=== PATIENT | female | born 1965 | race Caucasian/White ===

== ENCOUNTER → 2016-08-19 | Outpatient (REF) | payer BC ==
[2016-08-19 15:43] LABS: BASO % 0.7 % (0.0-1.0); EOS # 0.5 K/mm3 (0.0-0.50); EOS % 6.7 % (0.0-3.0); LARGE UNSTAINED CELL # 0.1 K/mm3 (0.0-0.4); LYMPH % 28.8 % (24.0-44.0); MEAN CORPUSCULAR HEMOGLOBIN 29.7 pg (27.0-33.0); MEAN CORPUSCULAR HGB CONC 32.7 g/dl (32.0-36.5); MEAN CORPUSCULAR VOLUME 90.8 fl (80.0-96.0); MONO # 0.3 K/mm3 (0.0-0.8); MONO % 4.2 % (0.0-5.0); NEUTROPHILS % 58.7 % (36.0-66.0); PLATELET COUNT, AUTOMATED 234 k/mm3 (150-450); RED CELL DISTRIBUTION WIDTH 13.3 % (11.5-14.5); WHITE BLOOD COUNT 6.8 K/mm3 (4.0-10.0)
[2016-08-19 15:50] LABS: ALBUMIN 3.9 GM/DL (3.2-5.2); ALBUMIN/GLOBULIN RATIO 1.18 (1.00-1.93); ALKALINE PHOSPHATASE 88 U/L (45-117); ALT/SGPT 27 U/L (12-78); ANION GAP 7 MEQ/L (8-16); AST/SGOT 24 U/L (15-37); BILIRUBIN,TOTAL 0.5 MG/DL (0.2-1.0); BLOOD UREA NITROGEN 8 MG/DL (7-18); CALCIUM LEVEL 8.7 MG/DL (8.5-10.1); CARBON DIOXIDE LEVEL 27 MEQ/L (21-32); CHLORIDE LEVEL 109 MEQ/L (98-107); CHOLESTEROL LEVEL 177 MG/DL (<200); CREATININE FOR GFR 0.81 MG/DL (0.55-1.02); FREE T4 0.78 NG/DL (0.76-1.46); GLOMERULAR FILTRATION RATE > 60.0 (>51); GLUCOSE, FASTING 79 MG/DL (70-105); POTASSIUM SERUM 3.9 MEQ/L (3.5-5.1); SODIUM LEVEL 143 MEQ/L (136-145); TOTAL PROTEIN 7.2 GM/DL (6.4-8.2); TRIGLYCERIDES LEVEL 103 MG/DL (<150)
== END ==
LOC: M SFHCSACK 08:08
PROVIDERS: ATTEND Physician Assistant
DX: Z13.29 Encounter for screening for other suspected endocrine disorder (principal); Z13.21 Encounter for screening for nutritional disorder; I10 Essential (primary) hypertension; E78.5 Hyperlipidemia, unspecified

== ENCOUNTER → 2016-09-13 | Outpatient (CLI) | payer BC | LOC: M WUC 11:52 | PROVIDERS: ATTEND Physician Assistant | DX: M54.9 Dorsalgia, unspecified (principal) ==

== ENCOUNTER → 2017-11-21 | Outpatient (CLI) | payer BC ==
[2017-11-21 13:08] LABS: BASO % 0.6 % (0.0-1.0); EOS # 0.1 10^3/uL (0.0-0.50); EOS % 1.7 % (0.0-3.0); HEMOGLOBIN 13.6 g/dl (12.0-15.5); IMMATURE GRANULOCYTE % 0.3 % (0-3.0); LYMPH # 1.6 10^3/uL (1.5-4.5); LYMPH % 22.9 % (24.0-44.0); MEAN CORPUSCULAR HEMOGLOBIN 29.5 pg (27.0-33.0); MEAN CORPUSCULAR HGB CONC 32.4 g/dl (32.0-36.5); MEAN CORPUSCULAR VOLUME 91.1 fl (80.0-96.0); MONO # 0.4 10^3/uL (0.0-0.8); MONO % 5.3 % (0.0-5.0); NEUTROPHILS % 69.2 % (36.0-66.0); PLATELET COUNT, AUTOMATED 226 10^3/uL (150-450); RED BLOOD COUNT 4.61 10^6/uL (4.00-5.40); RED CELL DISTRIBUTION WIDTH 13.1 % (11.5-14.5); WHITE BLOOD COUNT 7.2 10^3/uL (4.0-10.0)
[2017-11-21 13:45] LABS: ALBUMIN 3.9 GM/DL (3.2-5.2); ALBUMIN/GLOBULIN RATIO 1.11 (1.00-1.93); ALKALINE PHOSPHATASE 93 U/L (45-117); ALT/SGPT 26 U/L (12-78); ANION GAP 10 MEQ/L (8-16); AST/SGOT 19 U/L (7-37); BILIRUBIN,TOTAL 0.6 MG/DL (0.2-1.0); BLOOD UREA NITROGEN 13 MG/DL (7-18); CALCIUM LEVEL 8.9 MG/DL (8.5-10.1); CARBON DIOXIDE LEVEL 27 MEQ/L (21-32); CHLORIDE LEVEL 105 MEQ/L (98-107); CREATININE FOR GFR 0.84 MG/DL (0.55-1.30); GLOMERULAR FILTRATION RATE > 60.0 (>51); GLUCOSE, FASTING 91 MG/DL (70-100); POTASSIUM SERUM 4.8 MEQ/L (3.5-5.1); SODIUM LEVEL 142 MEQ/L (136-145); TOTAL PROTEIN 7.4 GM/DL (6.4-8.2)
== END ==
LOC: M WUC 09:53
DX: R19.7 Diarrhea, unspecified (principal); J01.90 Acute sinusitis, unspecified
CPT/HCPCS: 80053

== ENCOUNTER 2020-09-11 09:37 | Emergency (ER) | payer BC, OTHER ==
[~2020-09-11] VITALS: Ht 170.2 cm; Wt 95.3 kg
[2020-09-11 10:22] LABS: BASO % 0.7 % (0.0-1.0); EOS # 0.2 10^3/uL (0.0-0.5); EOS % 3.3 % (0.0-3.0); HEMOGLOBIN 14.9 g/dl (12.0-15.5); LYMPH # 1.6 10^3/uL (1.5-5.0); MEAN CORPUSCULAR HEMOGLOBIN 29.4 pg (27.0-33.0); MEAN CORPUSCULAR HGB CONC 31.7 g/dl (32.0-36.5); MEAN CORPUSCULAR VOLUME 92.9 fl (80.0-96.0); MONO # 0.3 10^3/uL (0.0-0.8); MONO % 5.9 % (2.0-8.0); NEUTROPHILS # 3.6 10^3/uL (1.5-8.5); NEUTROPHILS % 62.9 % (36.0-66.0); PLATELET COUNT, AUTOMATED 214 10^3/uL (150-450); RED BLOOD COUNT 5.06 10^6/uL (4.00-5.40); WHITE BLOOD COUNT 5.8 10^3/uL (4.0-10.0)
--- NOTE | 2020-09-11 10:34 | REP ---
INDICATION: CHEST PAIN. COMPARISON: 08/07/2015 the latest prior TECHNIQUE: Portable FINDINGS: The technique utilized in obtaining the radiograph has magnified the cardiac silhouette and accentuated the interstitial markings. The superior mediastinal structures are midline. The cardiac silhouette is unremarkable in size, shape, and position. The diaphragmatic surfaces of the lungs are regular, and the costophrenic angles are clear. The pulmonary jo are clear. The imaged osseous structures are intact. IMPRESSION: There is no acute cardiopulmonary disease. No significant change compared to the prior exam. <Electronically signed by Noel Alanis > 09/11/20 [id number]
[2020-09-11] MEDS ORDERED: ISOVUE-370 76% 100ML VIAL As Ordered ONE (10:44)
[2020-09-11 11:08] LABS: ALT/SGPT 35 U/L (12-78); BILIRUBIN,DIRECT 0.1 MG/DL (0.0-0.2); BILIRUBIN,TOTAL 0.7 MG/DL (0.2-1.0); BLOOD UREA NITROGEN 12 MG/DL (7-18); CALCIUM LEVEL 9.5 MG/DL (8.5-10.1); CARBON DIOXIDE LEVEL 29 MEQ/L (21-32); CHLORIDE LEVEL 105 MEQ/L (98-107); CREATININE FOR GFR 0.82 MG/DL (0.55-1.30); FREE T4 0.98 NG/DL (0.76-1.46); GLOMERULAR FILTRATION RATE > 60.0 (>51); GLUCOSE, FASTING 104 MG/DL (70-100); LIPASE 123 U/L (73-393); NT-PRO BNP 114 PG/ML (<125); POTASSIUM SERUM 4.4 MEQ/L (3.5-5.1); SODIUM LEVEL 140 MEQ/L (136-145); TOTAL PROTEIN 7.6 GM/DL (6.4-8.2)
--- NOTE | 2020-09-11 11:21 | REP ---
INDICATION: chest pain, into back intermittent, ro dissection COMPARISON: CT angio chest 08/07/2015 for pulmonary arteries. TECHNIQUE: CT angiography of the chest attention aorta after the intravenous administration of 75 cc Isovue 370. MIP reformatted 3D imaging of the thoracic aorta was also obtained FINDINGS: Although the examinations are technically different there is no evidence of significant change in the appearance of the thoracic aorta when compared to the prior exam. The maximal AP dimension of the ascending aorta is 3.9 cm. There is no evidence of aneurysmal dilatation or dissection. The mediastinum and pulmonary milli are unchanged. There is no evidence of a mass or adenopathy. There are no pleural or pericardial effusions. There is no significant change in appearance of the imaged upper abdomen or imaged osseous structures. Since the exam was ordered and protocoled for evaluation and opacification of the thoracic aorta, evaluation of the pulmonary arteries cannot be made due to poor pulmonary arterial contrast opacification throughout the exam. IMPRESSION: CT findings are within normal limits as described above. <Electronically signed by Noel Alanis > 09/11/20 [id number]
[2020-09-11] MEDS ORDERED: CLOPIDOGREL 75 MG TAB PO STA (11:45)
[2020-09-11] MEDS ORDERED: ASPIRIN 81 MG CHEW TABLET PO ONE (11:45)
[2020-09-11] MEDS ORDERED: HEPARIN SOD (PORCINE) 5000UNITS/ML 1ML VIAL/SYRINGE IV ONE (11:45)
[2020-09-11] MEDS ORDERED: CLOPIDOGREL 300 MG TAB (PLAVIX) PO ONE (11:45)
[2020-09-11] MEDS ORDERED: HEPARIN DRIP 25,000 UNITS in IV 1 EA IV SCH ×5 (11:45→14:20)
[2020-09-11] MEDS ORDERED: MORPHINE 2 MG/ML 1ML VIAL (J2270) IV ONE (11:55)
[2020-09-11 13:14] LABS: RSV AMPLIFICATION NEGATIVE (NEGATIVE)
[2020-09-11 13:52] LABS: INR 1.02; PROTHROMBIN TIME 13.6 SECONDS (12.5-14.3)
[2020-09-11 14:13] LABS: PARTIAL THROMBOPLASTIN TIME 181.7 SECONDS (24.2-38.5)
[2020-09-11] MEDS ORDERED: HEPARIN SOD (PORCINE) 5000UNITS/ML 1ML VIAL/SYRINGE IV PRN (14:20)
[2020-09-11 15:16] VITALS: BP 143/84
--- NOTE | 2020-09-11 20:37 | ECGEPIP ---
[facility] - ED Test Date: 2020-09-11 Pat Name: BECCA DELONG Department: Room: - Gender: Female Deliver Driver: : 1965 Requested By: Cara Sam Order Number: [id number] Reading MD: Cara Sam Measurements Intervals [place] Rate: 53 P: 33 NE: 160 QRS: 5 QRSD: 74 T: 126 QT: 464 QTc: 435 Interpretive Statements Sinus bradycardia Anteroseptal infarct , age undetermined T wave abnormality, consider ischemia similar 08/07/15 Electronically Signed on 09-11-2020 20:37:16 EDT by Cara Sam
== END 2020-09-11 15:10 | disposition short-term general hospital (02) ==
LOC: M ED 09:37
DX: I24.9 Acute ischemic heart disease, unspecified (principal); R94.31 Abnormal electrocardiogram [ECG] [EKG]; M54.6 Pain in thoracic spine; I25.10 Atherosclerotic heart disease of native coronary artery without angina pectoris; I25.2 Old myocardial infarction; K21.9 Gastro-esophageal reflux disease without esophagitis; I10 Essential (primary) hypertension; E78.5 Hyperlipidemia, unspecified; Z88.0 Allergy status to penicillin
CPT/HCPCS: 71045; 71275; 80047; 80048; 80076; 83690; 83880; 84439; 84443; 85025; 85610; 85730; 87631; 93005; 93041; 94760; 96365; 96366; 99285; J1644; Q9967

== ENCOUNTER → 2022-02-06 | Outpatient (CLI) | payer OTHER ==
[2022-02-06 13:47] LABS: BASO # 0.1 10^3/uL (0.0-0.2); BASO % 0.6 % (0.0-1.0); EOS # 0.1 10^3/uL (0.0-0.5); EOS % 1.6 % (0.0-3.0); HEMOGLOBIN 13.9 g/dl (12.0-15.5); LYMPH # 1.9 10^3/uL (1.5-5.0); LYMPH % 23.8 % (24.0-44.0); MEAN CORPUSCULAR HEMOGLOBIN 29.4 pg (27.0-33.0); MEAN CORPUSCULAR HGB CONC 31.6 g/dl (32.0-36.5); MEAN CORPUSCULAR VOLUME 93.2 fl (80.0-96.0); MONO # 0.5 10^3/uL (0.0-0.8); MONO % 5.8 % (2.0-8.0); NEUTROPHILS # 5.5 10^3/uL (1.5-8.5); NEUTROPHILS % 67.7 % (36.0-66.0); PLATELET COUNT, AUTOMATED 273 10^3/uL (150-450); RED BLOOD COUNT 4.72 10^6/uL (4.00-5.40); WHITE BLOOD COUNT 8.1 10^3/uL (4.0-10.0)
[2022-02-06 14:15] LABS: ALBUMIN 4.2 G/DL (3.2-5.2); ALKALINE PHOSPHATASE 101 U/L (46-116); ALT/SGPT 43 U/L (7.0-40); AST/SGOT 38 U/L (<34); BILIRUBIN,TOTAL 0.6 MG/DL (0.3-1.2); BLOOD UREA NITROGEN 15 MG/DL (9-23); CALCIUM LEVEL 9.6 MG/DL (8.5-10.1); CARBON DIOXIDE LEVEL 27 MMOL/L (20-31); CHLORIDE LEVEL 106 MMOL/L (98-107); CHOLESTEROL LEVEL 160 MG/DL (<200); CHOLESTEROL RISK RATIO 2.11 (<5); CREATININE FOR GFR 0.86 MG/DL (0.55-1.30); GLOMERULAR FILTRATION RATE > 60.0 (>51); GLUCOSE, FASTING 99 MG/DL (60-100); HDL CHOLESTEROL 75.6 MG/DL (>40); LDL CHOLESTEROL 52.8 MG/DL (<100); NON-HDL-C 84 MG/DL; POTASSIUM SERUM 4.4 MMOL/L (3.5-5.1); SODIUM LEVEL 141 MMOL/L (136-145); TRIGLYCERIDES LEVEL 158 MG/DL (<150)
[2022-02-06 14:17] LABS: THYROID STIMULATING HORMONE 1.602 uIU/ML (0.55-4.78)
== END ==
LOC: M PLALAB 09:18
PROVIDERS: ATTEND Physician Assistant
DX: I25.10 Atherosclerotic heart disease of native coronary artery without angina pectoris (principal)

== ENCOUNTER → 2022-02-27 | Outpatient (CLI) | payer OTHER | LOC: M WHC 09:34 | PROVIDERS: ATTEND Physician Assistant | DX: R92.8 Other abnormal and inconclusive findings on diagnostic imaging of breast (principal); N63.21 Unspecified lump in the left breast, upper outer quadrant ==

== ENCOUNTER → 2022-03-13 | Outpatient (CLI) | payer OTHER ==
[~2022-03-13] MED LIST: ATOR1TAB19 PO; LISI5TAB11 PO
[2022-03-13 07:45] VITALS: BP 132/84
== END ==
LOC: M WHCPRO 07:32
PROVIDERS: ATTEND Surgery
DX: R92.8 Other abnormal and inconclusive findings on diagnostic imaging of breast (principal); R59.9 Enlarged lymph nodes, unspecified; N63.21 Unspecified lump in the left breast, upper outer quadrant; N63.32 Unspecified lump in axillary tail of the left breast

== ENCOUNTER → 2022-03-20 | Outpatient (CLI) | payer OTHER ==
[~2022-03-20] MED LIST changes: +ASPI81CH33 PO; +CLOT1CRE56 TOP
[2022-03-20 15:03] LABS: BLOOD UREA NITROGEN 14 MG/DL (9-23); CALCIUM LEVEL 9.1 MG/DL (8.5-10.1); CARBON DIOXIDE LEVEL 27 MMOL/L (20-31); CHLORIDE LEVEL 106 MMOL/L (98-107); GLOMERULAR FILTRATION RATE > 60.0 (>51); GLUCOSE, FASTING 91 MG/DL (60-100); POTASSIUM SERUM 4.3 MMOL/L (3.5-5.1); SODIUM LEVEL 141 MMOL/L (136-145)
== END ==
LOC: M PLALAB 09:58
PROVIDERS: ATTEND Surgery
DX: C50.912 Malignant neoplasm of unspecified site of left female breast (principal)

== ENCOUNTER → 2022-03-21 | Outpatient (CLI) | payer OTHER ==
[~2022-03-21] MED LIST changes: +PROHANCE 279.3MG/ML 15ML VIAL As Ordered ONE; +PROHANCE 279.3MG/ML 5ML VIAL As Ordered ONE
== END ==
LOC: M RAD 15:27
PROVIDERS: ATTEND Surgery
DX: C50.912 Malignant neoplasm of unspecified site of left female breast (principal)

== ENCOUNTER → 2022-03-28 | Outpatient (CLI) | payer OTHER ==
[~2022-03-28] MED LIST changes: +DEXA4TA PO; -PROHANCE 279.3MG/ML 15ML VIAL As Ordered ONE; -PROHANCE 279.3MG/ML 5ML VIAL As Ordered ONE
== END ==
LOC: M CARPUL 13:09
PROVIDERS: ATTEND Internal Medicine Medical Oncology
DX: I42.7 Cardiomyopathy due to drug and external agent (principal); C50.919 Malignant neoplasm of unspecified site of unspecified female breast

== ENCOUNTER → 2022-04-05 | Outpatient (CLI) | payer OTHER ==
[~2022-04-05] MED LIST changes: +ACET-897 PO; +CETI10CH PO; +LIDOCAINE 1% MDV 20ML VIAL As Ordered ONE; +MIDAZOLAM INJ 2MG/2ML VIAL As Ordered ONE; +MULT-40 PO; +NS 1,000 ML IV SCH; +VANCOMYCIN 1000MG/20ML VIAL As Ordered ONE; +VANCOMYCIN HCL 1,000 MG, VIAL MATE ADAPTER 1 EACH in NS 250 ML IV ONE; +diphenhydrAMINE 50MG/ML VIAL As Ordered ONE; +fentaNYL 100 MCG/2 ML INJECTION As Ordered ONE
[2022-04-05 10:30] VITALS: BP 155/67
== END ==
LOC: M IRPRO 06:37
PROVIDERS: ATTEND Internal Medicine Medical Oncology
DX: C50.912 Malignant neoplasm of unspecified site of left female breast (principal); Z79.82 Long term (current) use of aspirin; Z79.899 Other long term (current) drug therapy; Z88.0 Allergy status to penicillin
CPT/HCPCS: 36561; 87635; 99152; 99153; C1769; C1788; C1894; J1642; J1644; J2250; J3010; J3370

== ENCOUNTER → 2022-04-22 | Outpatient (CLI) | payer OTHER ==
[~2022-04-22] MED LIST changes: +ATOR80TA59 PO; +HOME MED LIST COMPLETE! XX SCH; -MIDAZOLAM INJ 2MG/2ML VIAL As Ordered ONE; -NS 1,000 ML IV SCH; -VANCOMYCIN 1000MG/20ML VIAL As Ordered ONE; -VANCOMYCIN HCL 1,000 MG, VIAL MATE ADAPTER 1 EACH in NS 250 ML IV ONE; -diphenhydrAMINE 50MG/ML VIAL As Ordered ONE; -fentaNYL 100 MCG/2 ML INJECTION As Ordered ONE
[2022-04-22 11:45] VITALS: BP 148/73
== END ==
LOC: M IRPRO 07:56
PROVIDERS: ATTEND Internal Medicine Medical Oncology
DX: C78.01 Secondary malignant neoplasm of right lung (principal); C50.912 Malignant neoplasm of unspecified site of left female breast; R91.1 Solitary pulmonary nodule; J95.811 Postprocedural pneumothorax

== ENCOUNTER → 2022-04-23 | Outpatient (POV) | payer OTHER ==
[~2022-04-23] VITALS: Ht 170.2 cm; Wt 95.4 kg
[~2022-04-23] MED LIST changes: -HOME MED LIST COMPLETE! XX SCH; -LIDOCAINE 1% MDV 20ML VIAL As Ordered ONE
[2022-04-23 14:00] VITALS: BP 140/80
== END ==
LOC: M IRPOV 13:21
PROVIDERS: ATTEND Radiology Diagnostic Radiology
DX: Z45.2 Encounter for adjustment and management of vascular access device (principal); Z88.0 Allergy status to penicillin

== ENCOUNTER → 2022-05-06 | Outpatient (CLI) | payer OTHER ==
[~2022-05-06] MED LIST changes: +CALC1TAB42 PO; +GABA-282; +KISQ200T PO; +LETR2.5T2 PO
[2022-05-06 10:27] LABS: BASO % 0.6 % (0.0-1.0); EOS # 0.1 10^3/uL (0.0-0.5); HEMATOCRIT 42.1 % (36.0-47.0); HEMOGLOBIN 13.6 g/dl (12.0-15.5); LYMPH # 1.7 10^3/uL (1.5-5.0); LYMPH % 24.2 % (24.0-44.0); MEAN CORPUSCULAR HEMOGLOBIN 30.1 pg (27.0-33.0); MEAN CORPUSCULAR HGB CONC 32.3 g/dl (32.0-36.5); MEAN CORPUSCULAR VOLUME 93.1 fl (80.0-96.0); MONO # 0.4 10^3/uL (0.0-0.8); MONO % 6.4 % (2.0-8.0); NEUTROPHILS # 4.6 10^3/uL (1.5-8.5); NEUTROPHILS % 66.4 % (36.0-66.0); PLATELET COUNT, AUTOMATED 254 10^3/uL (150-450); RED BLOOD COUNT 4.52 10^6/uL (4.00-5.40); WHITE BLOOD COUNT 6.9 10^3/uL (4.0-10.0)
[2022-05-06 10:59] LABS: ALBUMIN 3.8 G/DL (3.2-5.2); ALKALINE PHOSPHATASE 107 U/L (46-116); ALT/SGPT 21 U/L (7.0-40); AST/SGOT 20 U/L (<34); BILIRUBIN,TOTAL 0.7 MG/DL (0.3-1.2); BLOOD UREA NITROGEN 17 MG/DL (9-23); CALCIUM LEVEL 8.6 MG/DL (8.5-10.1); CARBON DIOXIDE LEVEL 28 MMOL/L (20-31); CHLORIDE LEVEL 105 MMOL/L (98-107); CREATININE FOR GFR 0.85 MG/DL (0.55-1.30); GLOMERULAR FILTRATION RATE > 60.0 (>51); GLUCOSE, FASTING 95 MG/DL (60-100); POTASSIUM SERUM 4.1 MMOL/L (3.5-5.1); SODIUM LEVEL 139 MMOL/L (136-145); TOTAL PROTEIN 6.7 G/DL (5.7-8.2)
== END ==
LOC: M EKG 09:35
PROVIDERS: ATTEND Internal Medicine Medical Oncology
DX: C50.912 Malignant neoplasm of unspecified site of left female breast (principal)

== ENCOUNTER → 2022-06-20 | Outpatient (CLI) | payer OTHER ==
[~2022-06-20] MED LIST changes: +RIBO1TAB2 PO
[2022-06-20 10:16] LABS: BASO % 1.1 % (0.0-1.0); EOS % 0.7 % (0.0-3.0); HEMOGLOBIN 12.7 g/dl (12.0-15.5); LYMPH # 1.1 10^3/uL (1.5-5.0); LYMPH % 41.2 % (24.0-44.0); MEAN CORPUSCULAR HEMOGLOBIN 30.5 pg (27.0-33.0); MEAN CORPUSCULAR HGB CONC 32.6 g/dl (32.0-36.5); MEAN CORPUSCULAR VOLUME 93.8 fl (80.0-96.0); MONO # 0.2 10^3/uL (0.0-0.8); MONO % 5.5 % (2.0-8.0); NEUTROPHILS # 1.4 10^3/uL (1.5-8.5); NEUTROPHILS % 51.1 % (36.0-66.0); PLATELET COUNT, AUTOMATED 220 10^3/uL (150-450); RED BLOOD COUNT 4.16 10^6/uL (4.00-5.40); WHITE BLOOD COUNT 2.7 10^3/uL (4.0-10.0)
== END ==
LOC: M LAB 09:12
PROVIDERS: ATTEND Internal Medicine Medical Oncology
DX: C50.912 Malignant neoplasm of unspecified site of left female breast (principal)

== ENCOUNTER → 2022-07-17 | Outpatient (CLI) | payer OTHER | LOC: M WHC 08:44 | PROVIDERS: ATTEND Internal Medicine Medical Oncology | DX: Z13.820 Encounter for screening for osteoporosis (principal); C50.912 Malignant neoplasm of unspecified site of left female breast; M85.852 Other specified disorders of bone density and structure, left thigh; M81.0 Age-related osteoporosis without current pathological fracture ==

== ENCOUNTER → 2022-07-29 | Outpatient (CLI) | payer OTHER ==
[~2022-07-29] MED LIST changes: +ALEN70TA82 PO; +GASTROGRAFIN SOLUTION 30ML As Ordered ONE; +ISOVUE-370 76% 100ML VIAL As Ordered ONE
== END ==
LOC: M RAD 08:23
PROVIDERS: ATTEND Internal Medicine Medical Oncology
DX: C50.919 Malignant neoplasm of unspecified site of unspecified female breast (principal); N63.25 Unspecified lump in the left breast, overlapping quadrants
CPT/HCPCS: 71260; 74177; Q9963; Q9967

== ENCOUNTER → 2022-10-25 | Outpatient (CLI) | payer OTHER ==
[~2022-10-25] MED LIST changes: +CLEO300C2 PO
== END ==
LOC: M RAD 08:36
PROVIDERS: ATTEND Internal Medicine Medical Oncology
DX: C50.919 Malignant neoplasm of unspecified site of unspecified female breast (principal); K44.9 Diaphragmatic hernia without obstruction or gangrene; K57.90 Diverticulosis of intestine, part unspecified, without perforation or abscess without bleeding
CPT/HCPCS: 71260; 74177; Q9963; Q9967

== ENCOUNTER → 2022-11-05 | Outpatient (CLI) | payer OTHER ==
[~2022-11-05] VITALS: Ht 170.2 cm; Wt 93.2 kg
[~2022-11-05] MED LIST changes: -GASTROGRAFIN SOLUTION 30ML As Ordered ONE; -ISOVUE-370 76% 100ML VIAL As Ordered ONE; +LIDOCAINE 1% MDV 20ML VIAL As Ordered ONE; +LIDOCAINE W/EPINEPHRINE 1% 20ML VIAL As Ordered ONE; +MIDAZOLAM INJ 2MG/2ML VIAL As Ordered ONE; +ceFAZolin 2 GM/D5W 50 ML IV BAG As Ordered ONE; +ceFAZolin SOD 2 GM in IV 1 EA IV ONE; +fentaNYL 100 MCG/2 ML INJECTION As Ordered ONE
[2022-11-05 07:10] VITALS: TEMP 98.9
[2022-11-05 08:01] LABS: INR 0.99; PROTHROMBIN TIME 12.8 SECONDS (12.5-14.5)
[2022-11-05 08:02] LABS: PARTIAL THROMBOPLASTIN TIME 24.6 SECONDS (24.8-34.2)
[2022-11-05 10:40] VITALS: BP 159/77; O2SAT 100
== END ==
LOC: M IRPRO 06:51
PROVIDERS: ATTEND Internal Medicine Medical Oncology
DX: C50.912 Malignant neoplasm of unspecified site of left female breast (principal)
CPT/HCPCS: 36589; 85610; 85730; J0690; J2250; J3010

== ENCOUNTER → 2023-03-10 | Outpatient (CLI) | payer OTHER ==
[~2023-03-10] MED LIST changes: -GABA-282; +GABA-282 PO; +GASTROGRAFIN SOLUTION 30ML As Ordered ONE; +ISOVUE-370 76% 100ML VIAL As Ordered ONE; -LIDOCAINE 1% MDV 20ML VIAL As Ordered ONE; -LIDOCAINE W/EPINEPHRINE 1% 20ML VIAL As Ordered ONE; -MIDAZOLAM INJ 2MG/2ML VIAL As Ordered ONE; -ceFAZolin 2 GM/D5W 50 ML IV BAG As Ordered ONE; -ceFAZolin SOD 2 GM in IV 1 EA IV ONE; -fentaNYL 100 MCG/2 ML INJECTION As Ordered ONE
== END ==
LOC: M RAD 09:00
PROVIDERS: ATTEND Internal Medicine Medical Oncology
DX: C50.912 Malignant neoplasm of unspecified site of left female breast (principal); R91.1 Solitary pulmonary nodule; K44.9 Diaphragmatic hernia without obstruction or gangrene; K57.30 Diverticulosis of large intestine without perforation or abscess without bleeding
CPT/HCPCS: 71260; 74177; Q9963; Q9967

== ENCOUNTER 2023-03-29 08:37 | Emergency (ER) | payer OTHER ==
[~2023-03-29] VITALS: Ht 170.2 cm; Wt 92.9 kg
[~2023-03-29 08:37] MED LIST changes: -GASTROGRAFIN SOLUTION 30ML As Ordered ONE; -ISOVUE-370 76% 100ML VIAL As Ordered ONE
[2023-03-29 08:53] VITALS: TEMP 97.8
[2023-03-29 09:30] LABS: BASO % 1.5 % (0.0-1.0); EOS % 0.7 % (0.0-3.0); HEMATOCRIT 37.4 % (36.0-47.0); HEMOGLOBIN 13.4 g/dl (12.0-15.5); LYMPH # 0.9 10^3/uL (1.5-5.0); LYMPH % 32.1 % (24.0-44.0); MEAN CORPUSCULAR HEMOGLOBIN 39.1 pg (27.0-33.0); MEAN CORPUSCULAR HGB CONC 35.8 g/dl (32.0-36.5); MONO # 0.1 10^3/uL (0.0-0.8); MONO % 3.6 % (2.0-8.0); NEUTROPHILS # 1.7 10^3/uL (1.5-8.5); NEUTROPHILS % 61.7 % (36.0-66.0); PLATELET COUNT, AUTOMATED 194 10^3/uL (150-450); RED BLOOD COUNT 3.43 10^6/uL (4.00-5.40); WHITE BLOOD COUNT 2.7 10^3/uL (4.0-10.0)
[2023-03-29 09:40] LABS: INR 0.96; PROTHROMBIN TIME 12.5 SECONDS (12.5-14.5)
[2023-03-29 09:41] LABS: PARTIAL THROMBOPLASTIN TIME 24.8 SECONDS (24.8-34.2)
[2023-03-29 09:46] VITALS: BP 121/69
[2023-03-29 09:52] LABS: CK-MB VALUE MASS < 1.0 NG/ML (<3.6)
[2023-03-29 09:53] LABS: LIPASE 32 U/L (12-53)
[2023-03-29 09:55] LABS: ALBUMIN 3.6 G/DL (3.2-5.2); ALKALINE PHOSPHATASE 82 U/L (46-116); ALT/SGPT 20 U/L (7.0-40); AST/SGOT 17 U/L (<34); BILIRUBIN,DIRECT 0.3 MG/DL (<0.4); BILIRUBIN,TOTAL 0.8 MG/DL (0.3-1.2); BLOOD UREA NITROGEN 13 MG/DL (9-23); CALCIUM LEVEL 8.5 MG/DL (8.5-10.1); CARBON DIOXIDE LEVEL 26 MMOL/L (20-31); CHLORIDE LEVEL 111 MMOL/L (98-107); CPK CREATINE PHOSPHOKINASE 94 U/L (34-145); CREATININE FOR GFR 1.04 MG/DL (0.55-1.30); GLOMERULAR FILTRATION RATE 57.7 (>51); GLUCOSE, FASTING 110 MG/DL (60-100); MB/CK RELATIVE INDEX 1.06 (< OR =4); POTASSIUM SERUM 4.3 MMOL/L (3.5-5.1); SODIUM LEVEL 142 MMOL/L (136-145); TOTAL PROTEIN 6.3 G/DL (5.7-8.2)
[2023-03-29 09:56] LABS: THYROID STIMULATING HORMONE 1.134 uIU/ML (0.55-4.78)
[2023-03-29 09:57] LABS: FREE T4 1.15 NG/DL (0.89-1.76)
[2023-03-29 10:43] LABS: CK-MB VALUE MASS < 1.0 NG/ML (<3.6)
[2023-03-29 10:44] LABS: CPK CREATINE PHOSPHOKINASE 94 U/L (34-145); MB/CK RELATIVE INDEX 1.06 (< OR =4)
[2023-03-29] MEDS ORDERED: ISOVUE-370 76% 100ML VIAL As Ordered ONE (10:51)
[2023-03-29 11:16] VITALS: O2SAT 99
== END 2023-03-29 12:25 | disposition home or self-care (01) ==
LOC: M ED 08:37
DX: R07.9 Chest pain, unspecified (principal); M54.50 Low back pain, unspecified; R00.1 Bradycardia, unspecified; I45.81 Long QT syndrome; I10 Essential (primary) hypertension; E78.5 Hyperlipidemia, unspecified; C50.919 Malignant neoplasm of unspecified site of unspecified female breast; Z86.79 Personal history of other diseases of the circulatory system; Z79.82 Long term (current) use of aspirin; Z79.811 Long term (current) use of aromatase inhibitors; Z79.899 Other long term (current) drug therapy
CPT/HCPCS: 36415; 71045; 71275; 80048; 80076; 82550; 82553; 83690; 84439; 84443; 85025; 85610; 85730; 87486; 87581; 87633; 87798; 93005; 93041; 94760; 99285; Q9967

== ENCOUNTER → 2023-04-28 | Outpatient (CLI) | payer OTHER | LOC: M RAD 09:56 | PROVIDERS: ATTEND Internal Medicine Medical Oncology | DX: C50.912 Malignant neoplasm of unspecified site of left female breast (principal) | CPT/HCPCS: 78306; A9503 ==

== ENCOUNTER → 2023-07-10 | Outpatient (REF) | payer OTHER ==
[~2023-07-10] MED LIST changes: +LEVO1TAB39 PO
[2023-07-10 12:15] LABS: CHOLESTEROL RISK RATIO 1.7 (<5); HDL CHOLESTEROL 85.5 MG/DL (>40); LDL CHOLESTEROL 43.9 MG/DL (<100); NON-HDL-C 60.5 MG/DL
[2023-07-10 12:18] LABS: FREE T4 1.04 NG/DL (0.89-1.76); THYROID STIMULATING HORMONE 1.252 uIU/ML (0.55-4.78)
== END ==
LOC: M SFHCPLAZ 11:12
PROVIDERS: ATTEND Physician Assistant
DX: Z13.1 Encounter for screening for diabetes mellitus (principal); Z13.29 Encounter for screening for other suspected endocrine disorder; E78.5 Hyperlipidemia, unspecified

== ENCOUNTER 2023-07-19 09:51 | Inpatient (IN) | payer OTHER ==
[~2023-07-19] VITALS: Ht 170.2 cm; Wt 91.7 kg
[~2023-07-19 09:51] MED LIST changes: +LETROZOLE 2.5 MG TAB PO SCH
[2023-07-19] MEDS: MORPHINE 4 MG/ML 1ML VIAL IV PRN (10:56)
[2023-07-19 11:00] LABS: BASO % 0.5 % (0.0-1.0); EOS % 0.3 % (0.0-3.0); HEMATOCRIT 37.4 % (36.0-47.0); HEMOGLOBIN 13.2 g/dl (12.0-15.5); LYMPH # 0.9 10^3/uL (1.5-5.0); LYMPH % 24.7 % (24.0-44.0); MEAN CORPUSCULAR HEMOGLOBIN 39.2 pg (27.0-33.0); MEAN CORPUSCULAR HGB CONC 35.3 g/dl (32.0-36.5); MONO # 0.3 10^3/uL (0.0-0.8); NEUTROPHILS # 2.5 10^3/uL (1.5-8.5); PLATELET COUNT, AUTOMATED 250 10^3/uL (150-450); RED BLOOD COUNT 3.37 10^6/uL (4.00-5.40); WHITE BLOOD COUNT 3.7 10^3/uL (4.0-10.0)
[2023-07-19 11:05] LABS: ERYTHROCYTE SEDIMENTATION RATE 66 mm/hr (0-30)
[2023-07-19 11:14] LABS: INR 1.03; PARTIAL THROMBOPLASTIN TIME 27.2 SECONDS (24.8-34.2); PROTHROMBIN TIME 13.1 SECONDS (12.5-14.5)
[2023-07-19 11:34] LABS: ALBUMIN 3.2 G/DL (3.2-5.2); ALKALINE PHOSPHATASE 148 U/L (46-116); ALT/SGPT 28 U/L (7.0-40); AST/SGOT 30 U/L (<34); BILIRUBIN,DIRECT 0.2 MG/DL (<0.4); BILIRUBIN,TOTAL 0.6 MG/DL (0.3-1.2); BLOOD UREA NITROGEN 13 MG/DL (9-23); CALCIUM LEVEL 9.2 MG/DL (8.5-10.1); CARBON DIOXIDE LEVEL 28 MMOL/L (20-31); CHLORIDE LEVEL 106 MMOL/L (98-107); CREATININE FOR GFR 0.88 MG/DL (0.55-1.30); GLOMERULAR FILTRATION RATE > 60.0 (>51); GLUCOSE, FASTING 106 MG/DL (60-100); POTASSIUM SERUM 4.4 MMOL/L (3.5-5.1); SODIUM LEVEL 140 MMOL/L (136-145); TOTAL PROTEIN 6.6 G/DL (5.7-8.2)
[2023-07-19] MEDS ORDERED: ISOVUE-370 76% 100ML VIAL As Ordered ONE (11:40)
[2023-07-19 11:45] LABS: PROCALCITONIN 0.04 ng/ml
[2023-07-19] MEDS: cefTRIAXone SOD 2 GM in D5W MINI-BAG PLUS 50 ML IV ONE (13:03)
[2023-07-19] MEDS ORDERED: LETR2.5T2 PO (13:28)
[2023-07-19] MEDS ORDERED: RIBO1TAB2 PO (13:28)
[2023-07-19] MEDS ORDERED: ASPI81TA26 PO (13:28)
[2023-07-19] MEDS ORDERED: CETI-24 PO (13:28)
[2023-07-19] MEDS ORDERED: LEVO1TAB39 PO (13:28)
[2023-07-19] MEDS ORDERED: HOME MED LIST COMPLETE! XX SCH (13:30)
[2023-07-19] MEDS: dexAMETHasone 20MG/5ML VIAL IV ONE (14:02)
[2023-07-19] MEDS ORDERED: GABAPENTIN 300 MG CAP PO PRN (14:05)
[2023-07-19] MEDS: metroNIDAZOLE 500 MG in IV 1 EA IV ONE (14:06)
[2023-07-19] MEDS: NS 1,000 ML IV SCH (15:29)
[2023-07-19] MEDS: ACETAMINOPHEN TAB 650MG DOSE (2X325MG) PO PRN (15:30)
[2023-07-19 16:15] VITALS: BP 138/83; TEMP 97.5; O2SAT 97
[2023-07-19] MEDS: CLINDAMYCIN 900 MG in IV 1 EA IV SCH (18:15)
[2023-07-19] MEDS: LETROZOLE 2.5 MG TAB PO SCH (18:15)
[2023-07-19] MEDS: ATORVASTATIN 20 MG TAB PO SCH (19:39)
[2023-07-19] MEDS: lisinopriL 5 MG TAB PO SCH (19:40)
[2023-07-19 20:00] VITALS: BP 133/82; TEMP 97.5; O2SAT 96
[2023-07-19 20:48] VITALS: O2SAT 96
[2023-07-19] MEDS: dexAMETHasone 20MG/5ML VIAL IV SCH (21:00)
[2023-07-20] VITALS (16 sets, daily range): BP systolic 101–155; BP diastolic 58–83; TEMP 97.2–98.2; O2SAT 94–98
[2023-07-20 06:40] LABS: HEMATOCRIT 33.5 % (36.0-47.0); HEMOGLOBIN 11.8 g/dl (12.0-15.5); MEAN CORPUSCULAR HEMOGLOBIN 38.7 pg (27.0-33.0); MEAN CORPUSCULAR HGB CONC 35.2 g/dl (32.0-36.5); MEAN CORPUSCULAR VOLUME 109.8 fl (80.0-96.0); PLATELET COUNT, AUTOMATED 252 10^3/uL (150-450); RED BLOOD COUNT 3.05 10^6/uL (4.00-5.40); WHITE BLOOD COUNT 3.5 10^3/uL (4.0-10.0)
[2023-07-20 07:02] LABS: ALBUMIN 2.7 G/DL (3.2-5.2); ALKALINE PHOSPHATASE 129 U/L (46-116); ALT/SGPT 20 U/L (7.0-40); AST/SGOT 20 U/L (<34); BILIRUBIN,TOTAL 0.4 MG/DL (0.3-1.2); BLOOD UREA NITROGEN 10 MG/DL (9-23); CALCIUM LEVEL 8.8 MG/DL (8.5-10.1); CARBON DIOXIDE LEVEL 24 MMOL/L (20-31); CHLORIDE LEVEL 110 MMOL/L (98-107); CREATININE FOR GFR 0.71 MG/DL (0.55-1.30); GLOMERULAR FILTRATION RATE > 60.0 (>51); GLUCOSE, FASTING 150 MG/DL (60-100); MAGNESIUM LEVEL 1.8 MG/DL (1.8-2.4); POTASSIUM SERUM 3.9 MMOL/L (3.5-5.1); SODIUM LEVEL 142 MMOL/L (136-145); TOTAL PROTEIN 5.7 G/DL (5.7-8.2)
[2023-07-20 07:16] LABS: ATYPICAL LYMPH 3 % (0-5); LYMPHOCYTES 18 % (16-44); NEUTROPHILS 79 % (28-66)
[2023-07-20 07:17] LABS: PLATELET CLUMPS SMALL AMT; PLATELET ESTIMATE NORMAL (NORMAL)
[2023-07-20] MEDS: CETIRIZINE (ZyrTEC) 10 MG TAB PO SCH (08:25)
[2023-07-20] MEDS: LACTOBACILLUS ACIDOPHILUS CAP (BACID) PO SCH (08:25)
[2023-07-20] MEDS ORDERED: ONDANSETRON 4MG 2ML VIAL IV PRN ×2 (09:20→12:50)
[2023-07-20] MEDS ORDERED: oxyCODONE 5MG TAB PO PRN ×2 (09:20→12:50)
[2023-07-20] MEDS ORDERED: fentaNYL 100 MCG/2 ML INJECTION IV PRN ×2 (09:20→12:50)
[2023-07-20] MEDS: LR 1,000 ML IV SCH ×2 (09:20→12:50)
[2023-07-20] MEDS ORDERED: CLINDAMYCIN 900MG/50ML PREMIX BAG ONE (11:10)
[2023-07-20] MEDS ORDERED: CLINDAMYCIN 900MG/50ML PREMIX BAG As Ordered ONE (11:10)
[2023-07-20] MEDS ORDERED: ROCURONIUM BROMIDE 50MG/5ML VIAL As Ordered ONE (11:12)
[2023-07-20] MEDS ORDERED: propofoL 200 MG/20 ML VIAL As Ordered ONE (11:12)
[2023-07-20] MEDS ORDERED: MIDAZOLAM INJ 2MG/2ML VIAL As Ordered ONE (11:12)
[2023-07-20] MEDS ORDERED: fentaNYL 100 MCG/2 ML INJECTION As Ordered ONE (11:12)
[2023-07-20] MEDS ORDERED: LIDOCAINE 2% 100MG/5ML SDV (FOR ANES.) As Ordered ONE (11:12)
[2023-07-20] MEDS: LIDOCAINE W/EPINEPHRINE 1% 20ML VIAL As Ordered ONE (12:01)
[2023-07-20] MEDS: METHYLENE BLUE 0.5% (5MG/ML) 10 ML AMP (PROVAYBLUE) As Ordered ONE (12:01)
[2023-07-20] MEDS: OXYMETAZOLINE 0.05% NASAL SPRAY (AFRIN) As Ordered ONE (12:01)
[2023-07-20] MEDS ORDERED: ONDANSETRON 4MG 2ML VIAL As Ordered ONE (12:04)
[2023-07-20] MEDS ORDERED: SUGAMMADEX SODIUM 500 MG/5 ML VIAL (BRIDION) As Ordered ONE (12:13)
[2023-07-20] MEDS: HYDROMORPHONE HCL 0.5 MG/ 0.5 ML SYRINGE IV PRN (13:02)
[2023-07-20] MEDS: KISQALI PO SCH (14:57)
[2023-07-21 02:19] VITALS: BP 104/57; TEMP 97.9; O2SAT 97
[2023-07-21 06:00] VITALS: BP 134/86; TEMP 97.5; O2SAT 99
[2023-07-21 06:57] LABS: HEMOGLOBIN 11.2 g/dl (12.0-15.5); LYMPH # 0.6 10^3/uL (1.5-5.0); LYMPH % 8.9 % (24.0-44.0); MEAN CORPUSCULAR HEMOGLOBIN 38.6 pg (27.0-33.0); MEAN CORPUSCULAR VOLUME 110.3 fl (80.0-96.0); MONO # 0.2 10^3/uL (0.0-0.8); NEUTROPHILS # 5.8 10^3/uL (1.5-8.5); NEUTROPHILS % 86.9 % (36.0-66.0); PLATELET COUNT, AUTOMATED 274 10^3/uL (150-450); WHITE BLOOD COUNT 6.6 10^3/uL (4.0-10.0)
[2023-07-21 07:21] LABS: ALBUMIN 2.5 G/DL (3.2-5.2); ALKALINE PHOSPHATASE 107 U/L (46-116); ALT/SGPT 22 U/L (7.0-40); AST/SGOT 26 U/L (<34); BILIRUBIN,TOTAL 0.2 MG/DL (0.3-1.2); BLOOD UREA NITROGEN 17 MG/DL (9-23); CALCIUM LEVEL 8.5 MG/DL (8.5-10.1); CARBON DIOXIDE LEVEL 25 MMOL/L (20-31); CHLORIDE LEVEL 111 MMOL/L (98-107); CREATININE FOR GFR 0.76 MG/DL (0.55-1.30); GLOMERULAR FILTRATION RATE > 60.0 (>51); GLUCOSE, FASTING 160 MG/DL (60-100); POTASSIUM SERUM 4.2 MMOL/L (3.5-5.1); SODIUM LEVEL 144 MMOL/L (136-145); TOTAL PROTEIN 5.2 G/DL (5.7-8.2)
[2023-07-21 08:00] VITALS: BP 115/56; TEMP 97.7; O2SAT 97
[2023-07-21 09:00] VITALS: O2SAT 98
[2023-07-21] MEDS ORDERED: CLEO300C2 PO (11:32)
[2023-07-21] MEDS ORDERED: RISATAB3 PO (11:32)
== END 2023-07-21 12:26 | disposition home or self-care (01) | DRG 97 ==
LOC: M ED 09:51 → M ED INP 14:50 → M MSPAV 16:09
PROVIDERS: ADMIT Student in an Organized Health Care Education/Training Program; ATTEND Student in an Organized Health Care Education/Training Program
PROC: 0C9P0ZZ Drainage of Tonsils, Open Approach (ICD-10-PCS; principal; 2023-07-20 11:00)
PROC: 0CBP0ZX Excision of Tonsils, Open Approach, Diagnostic (ICD-10-PCS; 2023-07-20 11:00)
DX: J36 Peritonsillar abscess (principal); I11.0 Hypertensive heart disease with heart failure; C79.51 Secondary malignant neoplasm of bone; C78.00 Secondary malignant neoplasm of unspecified lung; I50.22 Chronic systolic (congestive) heart failure; I27.20 Pulmonary hypertension, unspecified; C50.919 Malignant neoplasm of unspecified site of unspecified female breast; I25.2 Old myocardial infarction; J44.9 Chronic obstructive pulmonary disease, unspecified; Z88.0 Allergy status to penicillin; I25.5 Ischemic cardiomyopathy; Z79.899 Other long term (current) drug therapy; Z79.82 Long term (current) use of aspirin; E78.5 Hyperlipidemia, unspecified; G89.3 Neoplasm related pain (acute) (chronic); Z95.2 Presence of prosthetic heart valve; F17.210 Nicotine dependence, cigarettes, uncomplicated; I25.10 Atherosclerotic heart disease of native coronary artery without angina pectoris

== ENCOUNTER 2023-07-25 20:23 | Emergency (ER) | payer OTHER ==
[~2023-07-25] VITALS: Ht 170.2 cm; Wt 98.0 kg
[~2023-07-25 20:23] MED LIST changes: +ASPI81TA26 PO; +CETI-24 PO; -LETROZOLE 2.5 MG TAB PO SCH; +RISATAB3 PO
[2023-07-25 20:24] VITALS: TEMP 99.4
[2023-07-25 21:43] LABS: EOS % 0.6 % (0.0-3.0); HEMATOCRIT 34.2 % (36.0-47.0); LYMPH # 1.4 10^3/uL (1.5-5.0); LYMPH % 19.7 % (24.0-44.0); MEAN CORPUSCULAR HEMOGLOBIN 38.6 pg (27.0-33.0); MEAN CORPUSCULAR HGB CONC 35.1 g/dl (32.0-36.5); MONO # 0.3 10^3/uL (0.0-0.8); MONO % 4.7 % (2.0-8.0); NEUTROPHILS # 5.4 10^3/uL (1.5-8.5); NEUTROPHILS % 74.6 % (36.0-66.0); PLATELET COUNT, AUTOMATED 248 10^3/uL (150-450); RED BLOOD COUNT 3.11 10^6/uL (4.00-5.40); WHITE BLOOD COUNT 7.2 10^3/uL (4.0-10.0)
[2023-07-25 22:15] LABS: BLOOD UREA NITROGEN 15 MG/DL (9-23); CALCIUM LEVEL 8.6 MG/DL (8.5-10.1); CARBON DIOXIDE LEVEL 27 MMOL/L (20-31); CHLORIDE LEVEL 104 MMOL/L (98-107); CREATININE FOR GFR 0.87 MG/DL (0.55-1.30); GLOMERULAR FILTRATION RATE > 60.0 (>51); GLUCOSE, FASTING 107 MG/DL (60-100); POTASSIUM SERUM 4.6 MMOL/L (3.5-5.1); SODIUM LEVEL 139 MMOL/L (136-145)
[2023-07-25] MEDS ORDERED: ISOVUE-370 76% 100ML VIAL As Ordered ONE (22:23)
[2023-07-25 23:40] VITALS: O2SAT 99
[2023-07-25] MEDS ORDERED: METR-265 PO (23:42)
[2023-07-25] MEDS ORDERED: CIPR-249 PO (23:42)
[2023-07-25 23:46] VITALS: BP 107/71
[2023-07-25] MEDS: metroNIDAZOLE (FLAGYL) 500MG TABLET PO ONE (23:48)
[2023-07-26] MEDS: CIPROFLOXACIN 500MG TABLET PO ONE (00:04)
== END 2023-07-26 00:06 | disposition home or self-care (01) ==
LOC: M ED 20:23
DX: K57.32 Diverticulitis of large intestine without perforation or abscess without bleeding (principal); K21.9 Gastro-esophageal reflux disease without esophagitis; K44.9 Diaphragmatic hernia without obstruction or gangrene; C50.919 Malignant neoplasm of unspecified site of unspecified female breast; C78.00 Secondary malignant neoplasm of unspecified lung; Z79.2 Long term (current) use of antibiotics; Z79.82 Long term (current) use of aspirin; Z79.02 Long term (current) use of antithrombotics/antiplatelets; Z79.811 Long term (current) use of aromatase inhibitors; Z79.899 Other long term (current) drug therapy; Z88.0 Allergy status to penicillin
CPT/HCPCS: 36415; 74177; 80048; 83605; 85025; 87040; 99284; Q9967

== ENCOUNTER → 2023-07-26 | Outpatient (REF) | payer OTHER ==
[~2023-07-26] MED LIST changes: +CIPR-249 PO; +METR-265 PO
== END ==
LOC: M LAB REF 13:26
PROVIDERS: ATTEND Emergency Medicine
DX: R19.7 Diarrhea, unspecified (principal)

== ENCOUNTER → 2023-08-04 | Outpatient (CLI) | payer OTHER | LOC: M SLEEP HO 10:53 | PROVIDERS: ATTEND Internal Medicine Cardiovascular Disease | DX: I27.23 Pulmonary hypertension due to lung diseases and hypoxia (principal); Z53.9 Procedure and treatment not carried out, unspecified reason ==

== ENCOUNTER → 2023-09-19 | Outpatient (CLI) | payer OTHER ==
[~2023-09-19] MED LIST changes: +ISOVUE-370 76% 100ML VIAL As Ordered ONE
== END ==
LOC: M RAD 14:53
PROVIDERS: ATTEND Internal Medicine Medical Oncology
DX: C50.919 Malignant neoplasm of unspecified site of unspecified female breast (principal)
CPT/HCPCS: 71260; Q9967

== ENCOUNTER → 2023-10-09 | Outpatient (CLI) | payer OTHER ==
[~2023-10-09] MED LIST changes: -ISOVUE-370 76% 100ML VIAL As Ordered ONE
== END ==
LOC: M RAD 14:22
PROVIDERS: ATTEND Internal Medicine Medical Oncology
DX: C50.919 Malignant neoplasm of unspecified site of unspecified female breast (principal)

== ENCOUNTER 2023-11-04 15:31 | Emergency (ER) | payer OTHER ==
[~2023-11-04] VITALS: Ht 170.2 cm; Wt 90.2 kg
[2023-11-04 16:53] LABS: BASO # 0.1 10^3/uL (0.0-0.2); BASO % 1.3 % (0.0-1.0); EOS % 0.9 % (0.0-3.0); HEMATOCRIT 37.9 % (36.0-47.0); HEMOGLOBIN 12.9 g/dl (12.0-15.5); LYMPH # 1.6 10^3/uL (1.5-5.0); LYMPH % 35.5 % (24.0-44.0); MEAN CORPUSCULAR VOLUME 108.6 fl (80.0-96.0); MONO # 0.6 10^3/uL (0.0-0.8); MONO % 13.4 % (2.0-8.0); NEUTROPHILS # 2.2 10^3/uL (1.5-8.5); NEUTROPHILS % 48.7 % (36.0-66.0); PLATELET COUNT, AUTOMATED 211 10^3/uL (150-450); RED BLOOD COUNT 3.49 10^6/uL (4.00-5.40); WHITE BLOOD COUNT 4.6 10^3/uL (4.0-10.0)
[2023-11-04 17:18] LABS: CK-MB VALUE MASS < 1.0 NG/ML (<3.6)
[2023-11-04 17:19] LABS: ALBUMIN 3.6 G/DL (3.2-5.2); ALKALINE PHOSPHATASE 130 U/L (46-116); ALT/SGPT 114 U/L (7.0-40); AST/SGOT 102 U/L (<34); BILIRUBIN,DIRECT 0.2 MG/DL (<0.4); BILIRUBIN,TOTAL 0.4 MG/DL (0.3-1.2); BLOOD UREA NITROGEN 12 MG/DL (9-23); CALCIUM LEVEL 9.2 MG/DL (8.3-10.6); CARBON DIOXIDE LEVEL 30 MMOL/L (20-31); CHLORIDE LEVEL 110 MMOL/L (98-107); CPK CREATINE PHOSPHOKINASE 67 U/L (34-145); CREATININE FOR GFR 0.94 MG/DL (0.55-1.30); GLOMERULAR FILTRATION RATE > 60.0 (>45); GLUCOSE, FASTING 99 MG/DL (74-106); MAGNESIUM LEVEL 1.9 MG/DL (1.8-2.4); MB/CK RELATIVE INDEX 1.49 (< OR =4); POTASSIUM SERUM 4.2 MMOL/L (3.5-5.1); SODIUM LEVEL 140 MMOL/L (136-145); TOTAL PROTEIN 6.5 G/DL (5.7-8.2)
[2023-11-04 17:45] VITALS: BP 129/70; O2SAT 100
[2023-11-04 18:45] VITALS: TEMP 99.7
== END 2023-11-04 18:57 | disposition left against medical advice (07) ==
LOC: M ED 15:31
DX: M54.50 Low back pain, unspecified (principal); R00.1 Bradycardia, unspecified; I25.2 Old myocardial infarction; I10 Essential (primary) hypertension; F17.200 Nicotine dependence, unspecified, uncomplicated; C50.919 Malignant neoplasm of unspecified site of unspecified female breast; Z86.79 Personal history of other diseases of the circulatory system; Z88.0 Allergy status to penicillin; Z79.1 Long term (current) use of non-steroidal anti-inflammatories (NSAID); Z79.82 Long term (current) use of aspirin; Z79.811 Long term (current) use of aromatase inhibitors; Z79.899 Other long term (current) drug therapy; Z53.9 Procedure and treatment not carried out, unspecified reason

== ENCOUNTER → 2023-11-22 | Outpatient (CLI) | payer OTHER ==
[~2023-11-22] MED LIST changes: +GABA-1172 PO; -GABA-282 PO
[2023-11-22 10:17] LABS: HEMATOCRIT 37.3 % (36.0-47.0); MEAN CORPUSCULAR HEMOGLOBIN 37.5 pg (27.0-33.0); MEAN CORPUSCULAR HGB CONC 34.9 g/dl (32.0-36.5); MEAN CORPUSCULAR VOLUME 107.5 fl (80.0-96.0); PLATELET COUNT, AUTOMATED 113 10^3/uL (150-450); RED BLOOD COUNT 3.47 10^6/uL (4.00-5.40); WHITE BLOOD COUNT 2.2 10^3/uL (4.0-10.0)
[2023-11-22 10:41] LABS: BASOPHILS 2 % (0-1); EOSINOPHILS 3 % (0-3); LYMPHOCYTES 38 % (16-44); MONOCYTES 5 % (0-5); NEUTROPHILS 51 % (28-66)
[2023-11-22 10:48] LABS: ALBUMIN 3.7 G/DL (3.2-5.2); BILIRUBIN,TOTAL 0.8 MG/DL (0.3-1.2); CREATININE FOR GFR 1.07 MG/DL (0.55-1.30); GLOMERULAR FILTRATION RATE 55.7 (>45); PLATELET CLUMPS SMALL AMT; PLATELET ESTIMATE DECREASED (NORMAL); POTASSIUM SERUM 4.2 MMOL/L (3.5-5.1); TOTAL PROTEIN 6.8 G/DL (5.7-8.2)
[2023-11-22 10:49] LABS: ANISOCYTOSIS 1+; POIKILOCYTOSIS 1+; TEAR DROP CELLS 1+
== END ==
LOC: M LAB 09:54
PROVIDERS: ATTEND Internal Medicine Cardiovascular Disease
DX: I50.42 Chronic combined systolic (congestive) and diastolic (congestive) heart failure (principal); I25.10 Atherosclerotic heart disease of native coronary artery without angina pectoris; I27.23 Pulmonary hypertension due to lung diseases and hypoxia

== ENCOUNTER → 2024-01-12 | Outpatient (CLI) | payer OTHER | LOC: M PLARAD 08:28 | PROVIDERS: ATTEND Internal Medicine Hematology & Oncology | DX: C50.912 Malignant neoplasm of unspecified site of left female breast (principal) | CPT/HCPCS: 78815; A9552 ==

== ENCOUNTER → 2024-02-10 | Outpatient (CLI) | payer OTHER ==
[~2024-02-10] MED LIST changes: +VERZ150T PO
== END ==
LOC: M CARPUL 08:51
PROVIDERS: ATTEND Internal Medicine Cardiovascular Disease
DX: R06.02 Shortness of breath (principal); I50.42 Chronic combined systolic (congestive) and diastolic (congestive) heart failure; I27.23 Pulmonary hypertension due to lung diseases and hypoxia

== ENCOUNTER → 2024-04-03 | Outpatient (CLI) | payer OTHER ==
[~2024-04-03] MED LIST changes: +VERZ100T PO
[2024-04-03 10:07] LABS: HEMATOCRIT 35.2 % (36.0-47.0); HEMOGLOBIN 11.9 g/dl (12.0-15.5); MEAN CORPUSCULAR HEMOGLOBIN 35.6 pg (27.0-33.0); MEAN CORPUSCULAR HGB CONC 33.8 g/dl (32.0-36.5); MEAN CORPUSCULAR VOLUME 105.4 fl (80.0-96.0); PLATELET COUNT, AUTOMATED 170 10^3/uL (150-450); RED BLOOD COUNT 3.34 10^6/uL (4.00-5.40); WHITE BLOOD COUNT 4.2 10^3/uL (4.0-10.0)
[2024-04-03 10:42] LABS: ALBUMIN 3.5 G/DL (3.2-5.2); BILIRUBIN,TOTAL 0.6 MG/DL (0.3-1.2); CALCIUM LEVEL 9.4 MG/DL (8.3-10.6); CREATININE FOR GFR 1.01 MG/DL (0.55-1.30); GLOMERULAR FILTRATION RATE 59.5 (>45); POTASSIUM SERUM 4.2 MMOL/L (3.5-5.1); TOTAL PROTEIN 6.5 G/DL (5.7-8.2)
== END ==
LOC: M LAB 09:25
PROVIDERS: ATTEND Internal Medicine Cardiovascular Disease
DX: I50.42 Chronic combined systolic (congestive) and diastolic (congestive) heart failure (principal); I25.10 Atherosclerotic heart disease of native coronary artery without angina pectoris; I27.23 Pulmonary hypertension due to lung diseases and hypoxia

== ENCOUNTER → 2024-05-01 | Outpatient (CLI) | payer OTHER ==
[~2024-05-01] MED LIST changes: +ENTR1TAB
[2024-05-01 11:45] LABS: CALCIUM LEVEL 9.1 MG/DL (8.3-10.6); CREATININE FOR GFR 1.05 MG/DL (0.55-1.30); GLOMERULAR FILTRATION RATE 56.9 (>45); POTASSIUM SERUM 4.1 MMOL/L (3.5-5.1)
== END ==
LOC: M LAB 10:49
PROVIDERS: ATTEND Physician Assistant
DX: I50.42 Chronic combined systolic (congestive) and diastolic (congestive) heart failure (principal)

== ENCOUNTER → 2024-05-29 | Outpatient (CLI) | payer OTHER ==
[~2024-05-29] MED LIST changes: +CIPR-250 PO
[2024-05-29 11:29] LABS: CALCIUM LEVEL 8.7 MG/DL (8.3-10.6); CREATININE FOR GFR 1.09 MG/DL (0.55-1.30); GLOMERULAR FILTRATION RATE 58.2 (>45); POTASSIUM SERUM 3.6 MMOL/L (3.5-5.1)
== END ==
LOC: M LAB 10:15
PROVIDERS: ATTEND Physician Assistant
DX: I50.42 Chronic combined systolic (congestive) and diastolic (congestive) heart failure (principal)

== ENCOUNTER → 2024-05-31 | Outpatient (CLI) | payer OTHER | LOC: M RAD 08:43 | PROVIDERS: ATTEND Specialist | DX: R94.5 Abnormal results of liver function studies (principal); K76.89 Other specified diseases of liver; C50.919 Malignant neoplasm of unspecified site of unspecified female breast ==

== ENCOUNTER → 2024-06-15 | Outpatient (CLI) | payer OTHER ==
[~2024-06-15] VITALS: Ht 172.7 cm; Wt 86.6 kg
[~2024-06-15] MED LIST changes: -ENTR1TAB; +ENTR1TAB PO; +PERC5TAB12 PO
[2024-06-15 15:02] VITALS: BP 118/78; O2SAT 99
== END ==
LOC: M PAL 14:19
PROVIDERS: ATTEND Physician Assistant
DX: Z51.5 Encounter for palliative care (principal); Z66 Do not resuscitate; C50.919 Malignant neoplasm of unspecified site of unspecified female breast; C78.00 Secondary malignant neoplasm of unspecified lung; C79.51 Secondary malignant neoplasm of bone; Z79.891 Long term (current) use of opiate analgesic; Z79.82 Long term (current) use of aspirin; Z88.0 Allergy status to penicillin; Z88.1 Allergy status to other antibiotic agents; Z79.899 Other long term (current) drug therapy

== ENCOUNTER → 2024-06-18 | Outpatient (CLI) | payer OTHER ==
[~2024-06-18] MED LIST changes: +ISOVUE-370 76% 100ML VIAL As Ordered ONE
== END ==
LOC: M RAD 13:51
PROVIDERS: ATTEND Internal Medicine Medical Oncology
DX: C50.912 Malignant neoplasm of unspecified site of left female breast (principal); J98.4 Other disorders of lung; K76.89 Other specified diseases of liver
CPT/HCPCS: 71260; 74177; Q9967

== ENCOUNTER → 2024-06-28 | Outpatient (CLI) | payer OTHER ==
[~2024-06-28] MED LIST changes: -ISOVUE-370 76% 100ML VIAL As Ordered ONE; +OXYC-517 PO; +OXYC10TA12 PO
== END ==
LOC: M PAL 10:03
PROVIDERS: ATTEND Physician Assistant
DX: Z51.5 Encounter for palliative care (principal); Z66 Do not resuscitate; C80.1 Malignant (primary) neoplasm, unspecified; C78.00 Secondary malignant neoplasm of unspecified lung; C79.51 Secondary malignant neoplasm of bone; Z79.891 Long term (current) use of opiate analgesic; Z88.0 Allergy status to penicillin; Z88.1 Allergy status to other antibiotic agents; Z79.82 Long term (current) use of aspirin

== ENCOUNTER → 2024-07-05 | Outpatient (REF) | payer OTHER ==
[2024-07-05 11:16] LABS: FREE T4 1.13 NG/DL (0.89-1.76); THYROID STIMULATING HORMONE 2.147 uIU/ML (0.55-4.78)
== END ==
LOC: M LAB REF 10:29
PROVIDERS: ATTEND Nurse Practitioner Family
DX: Z13.29 Encounter for screening for other suspected endocrine disorder (principal); Z13.1 Encounter for screening for diabetes mellitus

== ENCOUNTER → 2024-09-14 | Outpatient (CLI) | payer OTHER ==
[~2024-09-14] VITALS: Ht 170.2 cm; Wt 81.5 kg
[~2024-09-14] MED LIST changes: +CAPE1TAB2 PO; +ONDA-84 PO; +PROC10TA5 PO
[2024-09-14 11:20] VITALS: BP 137/79; O2SAT 99
== END ==
LOC: M PAL 10:47
PROVIDERS: ATTEND Physician Assistant
DX: Z51.5 Encounter for palliative care (principal); Z66 Do not resuscitate; C80.1 Malignant (primary) neoplasm, unspecified; C79.51 Secondary malignant neoplasm of bone; C78.00 Secondary malignant neoplasm of unspecified lung; Z88.0 Allergy status to penicillin; Z88.1 Allergy status to other antibiotic agents; Z79.899 Other long term (current) drug therapy; Z79.82 Long term (current) use of aspirin

== ENCOUNTER → 2024-09-15 | Outpatient (CLI) | payer OTHER ==
[2024-09-15 12:03] LABS: BASO # 0.0 10^3/uL (0.0-0.2); BASO % 0.7 % (0.0-1.0); EOS # 0.1 10^3/uL (0.0-0.5); EOS % 1.9 % (0.0-3.0); LYMPH # 1.8 10^3/uL (1.5-5.0); LYMPH % 30.6 % (24.0-44.0); MONO # 0.5 10^3/uL (0.0-0.8); MONO % 9.2 % (2.0-8.0); NEUTROPHILS # 3.4 10^3/uL (1.5-8.5); NEUTROPHILS % 57.4 % (36.0-66.0); PLATELET COUNT, AUTOMATED 225 10^3/uL (150-450)
[2024-09-15 12:24] LABS: ALT/SGPT 52.0 U/L (7.0-40); AST/SGOT 121.0 U/L (<34); CALCIUM LEVEL 9.7 MG/DL (8.3-10.6); CARBON DIOXIDE LEVEL 26.0 MMOL/L (20-31); CHLORIDE LEVEL 102.0 MMOL/L (98-107); CREATININE FOR GFR 0.82 MG/DL (0.55-1.30); GLOMERULAR FILTRATION RATE 81.3 (>45); POTASSIUM SERUM 4.7 MMOL/L (3.5-5.1); SODIUM LEVEL 139.0 MMOL/L (136-145)
[2024-09-15 14:21] LABS: CA15-3 ANTIGEN 2311.6 U/ML (<32.4)
== END ==
LOC: M LAB 10:53
PROVIDERS: ATTEND Internal Medicine Medical Oncology
DX: C50.912 Malignant neoplasm of unspecified site of left female breast (principal)

== ENCOUNTER → 2024-10-05 | Outpatient (CLI) | payer OTHER | LOC: M ONCR 10:49 | PROVIDERS: ATTEND General Practice | DX: C50.412 Malignant neoplasm of upper-outer quadrant of left female breast (principal); C79.51 Secondary malignant neoplasm of bone; C78.00 Secondary malignant neoplasm of unspecified lung; C78.7 Secondary malignant neoplasm of liver and intrahepatic bile duct; C77.3 Secondary and unspecified malignant neoplasm of axilla and upper limb lymph nodes; I25.2 Old myocardial infarction; Z79.82 Long term (current) use of aspirin; Z79.899 Other long term (current) drug therapy; Z80.0 Family history of malignant neoplasm of digestive organs; Z80.1 Family history of malignant neoplasm of trachea, bronchus and lung; Z88.0 Allergy status to penicillin; Z92.21 Personal history of antineoplastic chemotherapy ==

== ENCOUNTER → 2024-10-12 | Outpatient (CLI) | payer OTHER ==
[2024-10-12 12:35] LABS: BASO # 0.0 10^3/uL (0.0-0.2); BASO % 0.5 % (0.0-1.0); EOS # 0.1 10^3/uL (0.0-0.5); EOS % 1.4 % (0.0-3.0); LYMPH # 1.8 10^3/uL (1.5-5.0); LYMPH % 31.1 % (24.0-44.0); MONO # 0.6 10^3/uL (0.0-0.8); MONO % 10.0 % (2.0-8.0); NEUTROPHILS # 3.3 10^3/uL (1.5-8.5); NEUTROPHILS % 56.8 % (36.0-66.0); PLATELET COUNT, AUTOMATED 220 10^3/uL (150-450)
[2024-10-12 13:07] LABS: ALT/SGPT 52 U/L (7.0-40); AST/SGOT 136 U/L (<34); CALCIUM LEVEL 9.4 MG/DL (8.3-10.6); CARBON DIOXIDE LEVEL 26 MMOL/L (20-31); CHLORIDE LEVEL 103 MMOL/L (98-107); CREATININE FOR GFR 0.69 MG/DL (0.55-1.30); GLOMERULAR FILTRATION RATE > 90.0 (>45); POTASSIUM SERUM 4.2 MMOL/L (3.5-5.1); SODIUM LEVEL 141 MMOL/L (136-145)
[2024-10-12 13:21] LABS: CA19-9 TUMOR MARKER,CARBOHYDRA 91.2 U/ML (<35.0)
== END ==
LOC: M LAB 11:24
PROVIDERS: ATTEND Internal Medicine Medical Oncology
DX: C50.919 Malignant neoplasm of unspecified site of unspecified female breast (principal)

== ENCOUNTER 2024-10-15 10:30 | Outpatient (RCR) | payer OTHER | END 2024-10-17 | LOC: M ONCR 10:30 | PROVIDERS: ATTEND General Practice | DX: Z51.0 Encounter for antineoplastic radiation therapy (principal); C50.412 Malignant neoplasm of upper-outer quadrant of left female breast ==

== ENCOUNTER 2024-10-25 10:30 | Outpatient (RCR) | payer OTHER ==
[2024-10-25] MEDS ORDERED: ONDA-84 PO (15:56)
[2024-10-25] MEDS ORDERED: LACT20EL PO (15:56)
== END 2024-11-16 ==
LOC: M ONCR 10:30
PROVIDERS: ATTEND General Practice
DX: Z51.0 Encounter for antineoplastic radiation therapy (principal); C50.412 Malignant neoplasm of upper-outer quadrant of left female breast

== ENCOUNTER → 2024-10-27 | Outpatient (POV) | payer OTHER ==
[~2024-10-27] VITALS: Ht 170.2 cm; Wt 180.4 kg
[~2024-10-27] MED LIST changes: +LACT20EL PO
[2024-10-27 15:03] VITALS: BP 130/78; O2SAT 100
== END ==
LOC: M IRPOV 14:56
PROVIDERS: ATTEND Registered Nurse School
DX: C78.7 Secondary malignant neoplasm of liver and intrahepatic bile duct (principal); C79.51 Secondary malignant neoplasm of bone; C78.00 Secondary malignant neoplasm of unspecified lung; C50.912 Malignant neoplasm of unspecified site of left female breast; Z80.0 Family history of malignant neoplasm of digestive organs; Z80.1 Family history of malignant neoplasm of trachea, bronchus and lung; Z87.891 Personal history of nicotine dependence; Z88.0 Allergy status to penicillin; Z92.21 Personal history of antineoplastic chemotherapy; Z92.3 Personal history of irradiation

== ENCOUNTER → 2024-11-09 | Outpatient (CLI) | payer OTHER ==
[~2024-11-09] MED LIST changes: +ISOVUE-370 76% 100 ML VIAL As Ordered ONE
== END ==
LOC: M RAD 16:19
PROVIDERS: ATTEND Radiology Diagnostic Radiology
DX: C78.7 Secondary malignant neoplasm of liver and intrahepatic bile duct (principal)
CPT/HCPCS: 74177; Q9967

== ENCOUNTER 2024-11-22 09:53 | Emergency (ER) | payer OTHER ==
[~2024-11-22] VITALS: Ht 170.2 cm; Wt 80.6 kg
[~2024-11-22 09:53] MED LIST changes: -ISOVUE-370 76% 100 ML VIAL As Ordered ONE
[2024-11-22 11:12] LABS: BASO # 0.0 10^3/uL (0.0-0.2); BASO % 0.6 % (0.0-1.0); EOS # 0.1 10^3/uL (0.0-0.5); EOS % 0.9 % (0.0-3.0); LYMPH # 1.4 10^3/uL (1.5-5.0); LYMPH % 20.9 % (24.0-44.0); MONO # 0.8 10^3/uL (0.0-0.8); MONO % 12.5 % (2.0-8.0); NEUTROPHILS # 4.3 10^3/uL (1.5-8.5); NEUTROPHILS % 64.8 % (36.0-66.0); PLATELET COUNT, AUTOMATED 189 10^3/uL (150-450)
[2024-11-22 11:55] LABS: ALT/SGPT 49 U/L (7.0-40); AST/SGOT 171 U/L (<34); CALCIUM LEVEL 10.1 MG/DL (8.3-10.6); CARBON DIOXIDE LEVEL 28 MMOL/L (20-31); CHLORIDE LEVEL 102 MMOL/L (98-107); CREATININE FOR GFR 0.77 MG/DL (0.55-1.30); GLOMERULAR FILTRATION RATE 87.7 (>45); POTASSIUM SERUM 4.2 MMOL/L (3.5-5.1); SODIUM LEVEL 139 MMOL/L (136-145)
[2024-11-22] MEDS ORDERED: OXYC10TA12 PO (13:08)
[2024-11-22] MEDS ORDERED: HOME MED LIST COMPLETE! XX SCH (13:10)
[2024-11-22] MEDS: NS 500 ML IV ONE (14:31)
[2024-11-22 14:32] LABS: CK-MB VALUE MASS < 1.0 NG/ML (<3.6)
[2024-11-22] MEDS: MORPHINE 4 MG/ML 1 ML VIAL IV ONE (14:32)
[2024-11-22 14:33] LABS: CPK CREATINE PHOSPHOKINASE 59 U/L (34-145)
[2024-11-22] MEDS ORDERED: ISOVUE-370 76% 100 ML VIAL As Ordered ONE (14:38)
[2024-11-22 15:09] LABS: CK-MB VALUE MASS < 1.0 NG/ML (<3.6)
[2024-11-22 15:11] LABS: CPK CREATINE PHOSPHOKINASE 58 U/L (34-145)
[2024-11-22 16:00] VITALS: BP 152/76; TEMP 97.8; O2SAT 96
== END 2024-11-22 17:10 | disposition home or self-care (01) ==
LOC: M ED 09:53
DX: R07.89 Other chest pain (principal); M84.50XA Pathological fracture in neoplastic disease, unspecified site, initial encounter for fracture; C78.7 Secondary malignant neoplasm of liver and intrahepatic bile duct; C50.919 Malignant neoplasm of unspecified site of unspecified female breast; I49.1 Atrial premature depolarization; I45.81 Long QT syndrome; J98.11 Atelectasis; K59.00 Constipation, unspecified; R16.0 Hepatomegaly, not elsewhere classified; I25.2 Old myocardial infarction; K57.30 Diverticulosis of large intestine without perforation or abscess without bleeding; I70.0 Atherosclerosis of aorta; K42.9 Umbilical hernia without obstruction or gangrene; I10 Essential (primary) hypertension; E78.5 Hyperlipidemia, unspecified; Z88.0 Allergy status to penicillin; Z79.82 Long term (current) use of aspirin; Z79.899 Other long term (current) drug therapy
CPT/HCPCS: 71275; 74177; 80048; 80076; 82550; 82553; 83690; 84484; 85025; 93005; 93041; 94760; 96361; 96374; 99285; Q9967

== ENCOUNTER → 2024-11-30 | Outpatient (CLI) | payer OTHER ==
[~2024-11-30] VITALS: Ht 170.2 cm; Wt 80.9 kg
[~2024-11-30] MED LIST changes: +OXYC-1 PO; +OXYC30TA72 PO
[2024-11-30 15:59] VITALS: BP 141/98; O2SAT 97
== END ==
LOC: M PAL 15:38
PROVIDERS: ATTEND Physician Assistant
DX: Z51.5 Encounter for palliative care (principal); Z66 Do not resuscitate; C50.919 Malignant neoplasm of unspecified site of unspecified female breast; C78.00 Secondary malignant neoplasm of unspecified lung; C79.51 Secondary malignant neoplasm of bone; Z79.891 Long term (current) use of opiate analgesic; Z88.0 Allergy status to penicillin; Z88.1 Allergy status to other antibiotic agents; Z79.82 Long term (current) use of aspirin; Z79.899 Other long term (current) drug therapy

== ENCOUNTER → 2024-12-01 | Outpatient (CLI) | payer OTHER ==
[~2024-12-01] MED LIST changes: +PROHANCE 279.3MG/ML 15ML VIAL ONE
== END ==
LOC: M PLAIMG 10:49
PROVIDERS: ATTEND Internal Medicine Medical Oncology
DX: C50.919 Malignant neoplasm of unspecified site of unspecified female breast (principal); R51.9 Headache, unspecified
CPT/HCPCS: 70553; A9576

== ENCOUNTER → 2024-12-14 | Outpatient (CLI) | payer OTHER ==
[~2024-12-14] VITALS: Ht 170.2 cm; Wt 81.2 kg
[~2024-12-14] MED LIST changes: +OXYC15TA66 PO; -PROHANCE 279.3MG/ML 15ML VIAL ONE
[2024-12-14 15:36] VITALS: BP 140/88; O2SAT 98
== END ==
LOC: M PAL 15:19
PROVIDERS: ATTEND Physician Assistant
DX: Z51.5 Encounter for palliative care (principal); Z66 Do not resuscitate; C50.919 Malignant neoplasm of unspecified site of unspecified female breast; Z79.51 Long term (current) use of inhaled steroids; C78.00 Secondary malignant neoplasm of unspecified lung; Z79.891 Long term (current) use of opiate analgesic; Z88.0 Allergy status to penicillin; Z88.1 Allergy status to other antibiotic agents; Z79.899 Other long term (current) drug therapy; Z79.82 Long term (current) use of aspirin